=== PATIENT | male | born 1980 | race Caucasian/White ===

== ENCOUNTER 2021-12-07 17:01 | Emergency (ER) | payer MEDICAID, SELFPAY | END 2021-12-07 20:01 | disposition left against medical advice (07) | PROVIDERS: Emergency Provider Emergency Medicine | DX: Z76.0 Encounter for issue of repeat prescription (principal) ==

== ENCOUNTER 2023-01-08 12:20 | Emergency (ER) | payer MEDICAID, SELFPAY ==
--- NOTE | 2023-01-08 12:26 | ED_ITS ---
HPI - General Adult General Chief complaint: Abdominal Pain Stated complaint: abd pain/ constipated Time Seen by Provider: 01/08/23 12:42 Source: patient Mode of arrival: ambulatory Limitations: no limitations History of Present Illness HPI narrative: 42-year-old male came in for evaluation of constipation for 3 days. Patient with long history of constipation he normally he goes every 3 days for bowel movement normal and the last bowel movement was 3 days ago, patient have the urge to go but cannot go feels pressure in the rectum area, patient declined any abdominal pain, no nausea, no vomiting, no fever. Patient declined any prior surgical abdominal history in the past. No dysuria, no frequency urination, hematuria. Related Data Previous Rx's Medication Instructions Recorded bisacodyl 10 mg rectal suppository 10 mg [place] DAILY PRN constipation 01/08/23 (Dulcolax (bisacodyl)) #12 ea Allergies Allergy/AdvReac Type Severity Reaction Status Date / Time No Known Allergies Allergy Unverified 05/14/20 16:38 Review of Systems Review of Systems: All other systems are reviewed and are negative Constitutional: Reports as per HPI and Reports no additional constitutional complaints Eyes: Reports as per HPI and Reports no additional eye complaints Reports system reviewed and no additional complaints, except as documented Cardiovascular: Reports as per HPI and Reports no additional cardiovascular complaints Respiratory: Reports as per HPI and Reports no additional respiratory complaints Gastrointestinal: Reports as per HPI and Reports no additional gastrointestinal complaints Genitourinary: Reports no additional female genitourinary complaints Musculoskeletal: Reports no additional musculoskeletal complaints Skin/Breast: Reports system reviewed and no additional complaints, except as docu Psychiatric: Reports no additional psychiatric complaints Endocrine: Reports no additional endocrine complaints Hematologic/Lymphatic: Reports no additional hematologic/lymphatic complaints Allergic/Immunologic: Reports no additional allergic/immunologic complaints Reports system reviewed and no additional complaints, except as documented and Reports Abnormal speech present Physical Exam ED Vital Signs: Vital Signs - 24 hr 01/08/23 12:27 Temperature 96.4 F L Pulse Rate 84 Respiratory Rate 16 Blood Pressure 124/81 Pulse Oximetry 100 Oxygen Delivery Method Room Air BMI result Body Mass Index 26.5 Vital signs have been reviewed as appeared to be correct. Blood pressure normal. Heart rate normal. Respiration rate normal. Temperature normal. Oxygen saturation normal. Appearance: Alert. Oriented X3. No acute distress. Head: Normal external exam. Normocephalic. Atraumatic. No Umanzor signs noted. No raccoon eyes noted Eyes: PERRLA. EOMI. Conjunctiva and sclera normal. Eyelids normal. ENT: TM's Normal. Pharynx normal. Uvula midline. Moist mucous membranes. No trismus noted. No drooling noted. No muffled voice noted. Neck: Normal inspection. Neck supple. FROM. No adenopathy. Thyroid Normal. No meningeal signs. No neck mass noted. CVS: Normal heart rate and rhythm. Heart sound normal. No murmurs noted. Pulses normal throughout. Respiratory: No respiratory distress. Painless inspiration. Breath sounds normal. No wheezes/rales/rhonchi noted. Chest nontender. No accessory muscle usage noted or decreased air movement noted. Abdomen: Soft and nontender. Bowel sounds normal in all 4 quadrants. No distention noted. No organomegaly noted. No visible injury noted. Rectal exam: Patient declined the exam. Back: No CVA tenderness. Full range of motion noted. Skin: Skin warm and dry. Normal skin color. Normal skin turgor. No rashes/lesions/lacerations noted. Extremities: No lower extremity edema. Extremities exhibit normal range of motion. Extremities nontender. Neuro: Oriented X 3. Cranial nerve exam: II-XII are grossly intact No motor deficit. No sensory deficit. Reflexes normal. Course Course Course Narrative: RME performed by Jodi Aranda PA-C. Patient is a 42 year old assigned male at presenting to the emergency department with constipation. Patient states that he has not had a bowel movement for 3 days and today, he feels like he needs to go but can't. Patient states 3 days is normal for him but this is the first time he has felt like he's needed to but cant'. Labs and imaging ordered. Patient placed back in the waiting room pending room availability and results. Reevaluation(s) Reevaluation #1: Constipation patient with history of constipation, mild leukocytosis secondary to stress reaction but the abdominal exam is benign patient is refusing any radiographic studies and refusing rectal exam requesting to prescribe either enema or suppository and he will administer it himself at home. Patient was advised to have the rectal exam and possibly get radiographic studies and patient declined, will discharge after giving milk of magnesia and prescription for Dulcolax suppository. Time: 13:12 Medical Decision Making Differential Diagnosis Differential Diagnoses: The differential diagnosis associated with the presentation includes (Constipation, bowel obstruction, electrolyte abnormalities, severe anemia.) Lab Data MDM Lab Attestation statement: I reviewed the patient's lab results. 01/08/23 12:40 01/08/23 12:40 Labs: Lab Results 01/08/23 01/08/23 Range/Units 12:40 12:40 WBC 12.1 H (4.8-10.8) X10*3/uL RBC 4.65 (4.60-5.80) X10*6/uL Hgb 13.4 L (14.0-18.0) g/dl Hct 41.2 L (42.0-52.0) % MCV 88.6 (80.0-98.0) fL MCH 28.8 (27.0-33.0) pg MCHC 32.5 (31.0-36.0) g/dl RDW 13.1 (11.0-16.0) % Plt Count 243 (160-400) X10*3/uL MPV 10.0 (9.4-12.4) fL Immature Gran % (Auto) 0.5 H (0.0-0.4) % Neut % (Auto) 79.1 H (45-73) % Lymph % (Auto) 10.2 L (20-40) % [place] % (Auto) 7.4 (2-11) % Eos % (Auto) 2.3 (0-4) % Baso % (Auto) 0.5 (0-2) % Lymph # (Auto) 1.2 (1.2-4.9) X10*3/uL [place] # (Auto) 0.9 (0.1-1.2) X10*3/uL Eos # (Auto) 0.3 (0.0-0.4) X10*3/uL Baso # (Auto) 0.1 (0.0-0.2) X10*3/uL Abs Immat Gran (auto) 0.06 H (0.00-0.03) X10*3/uL Absolute Neuts (auto) 9.6 H (2.0-8.3) x10*3/uL Absolute Nucleated RBC 0.000 (0.0-0.012) X10*3/uL Nucleated RBC % (auto) 0.0 (0.0-0.2) /100WBC Sodium 142 (135-145) mmol/L Potassium 4.5 (3.3-5.1) mmol/L Chloride 108 (96-108) mmol/L Carbon Dioxide 28 (22-29) mmol/L Anion Gap 11 L (12-20) BUN 19 H (9-16) mg/dL Creatinine 0.84 (0.5-1.4) mg/dL Estim Creat Clear Calc 124.5 Estimated GFR > 60 Random Glucose 85 (60-115) mg/dL Calcium 9.4 (8.4-10.2) mg/dL Magnesium 2.0 (1.6-2.6) mg/dL Total Bilirubin 0.3 (0.0-1.0) mg/dL AST 18 (5-37) U/L ALT 17 (0-40) U/L Alkaline Phosphatase 72 (39-117) U/L Total Protein 7.2 (6.5-8.0) g/dL Albumin 4.2 (3.5-5.0) g/dL Discharge Plan Discharge Clinical Impression: Constipation Patient Disposition: Home, Self-Care Instructions: Constipation (ED) Prescriptions: New bisacodyl [Dulcolax (bisacodyl)] 10 mg suppository 10 mg [place] DAILY PRN (Reason: constipation) Qty: 12 0RF Referrals: Physician,Unknown J [Primary Care Provider] -
[2023-01-08 12:27] VITALS: BP 124/81; PULSE 84; RESP 16; TEMP 35.8; O2SAT 100; BMI 26.5
[2023-01-08 12:44] LABS: MANUAL DIFF FLAG NO
[2023-01-08 12:46] LABS: Basophils Absolute Auto 0.1 X10*3/uL (0.0-0.2); Basophils Percent Auto 0.5 % (0-2); Eosinophils Absolute Auto 0.3 X10*3/uL (0.0-0.4); Eosinophils Percent Auto 2.3 % (0-4); Hematocrit 41.2 % (42.0-52.0); Hemoglobin 13.4 g/dl (14.0-18.0); Imm Gran Abs Auto 0.06 X10*3/uL (0.00-0.03); Imm Gran Pct Auto 0.5 % (0.0-0.4); Lymphocytes Absolute Auto 1.2 X10*3/uL (1.2-4.9); Lymphocytes Percent Auto 10.2 % (20-40); Mean Corpuscular HGB Conc 32.5 g/dl (31.0-36.0); Mean Corpuscular Hemoglobin 28.8 pg (27.0-33.0); Mean Corpuscular Volume 88.6 fL (80.0-98.0); Monocytes Absolute Auto 0.9 X10*3/uL (0.1-1.2); Monocytes Percent Auto 7.4 % (2-11); Neutrophils Absolute Auto 9.6 x10*3/uL (2.0-8.3); Neutrophils Percent Auto 79.1 % (45-73); Platelet Count 243 X10*3/uL (160-400); Red Blood Count 4.65 X10*6/uL (4.60-5.80); Red Cell Distribution Width 13.1 % (11.0-16.0); White Blood Count 12.1 X10*3/uL (4.8-10.8)
[2023-01-08 13:02] LABS: Alanine Aminotransferase 17 U/L (0-40); Albumin Level 4.2 g/dL (3.5-5.0); Alkaline Phosphatase 72 U/L (39-117); Anion Gap 11 (12-20); Aspartate Amino Transferase 18 U/L (5-37); Bilirubin Total 0.3 mg/dL (0.0-1.0); Blood Urea Nitrogen 19 mg/dL (9-16); Calcium 9.4 mg/dL (8.4-10.2); Carbon Dioxide 28 mmol/L (22-29); Chloride 108 mmol/L (96-108); Creatinine Clr Calc Pharmacy 124.5; Estimated Glomerular Filt Rate > 60; Glucose Random 85 mg/dL (60-115); Potassium 4.5 mmol/L (3.3-5.1); Sodium 142 mmol/L (135-145); Total Protein 7.2 g/dL (6.5-8.0)
[2023-01-08] MEDS: Milk of Magnesia 30 ML ORAL.SUSP PO (13:06)
== END 2023-01-08 13:32 | disposition home or self-care (01) ==
PROVIDERS: Physician Assistant Medical; Emergency Provider Emergency Medicine
DX: K59.00 Constipation, unspecified (principal); Z79.899 Other long term (current) drug therapy
CPT/HCPCS: 36415; 80053; 83735; 85025; 99283

== ENCOUNTER 2023-07-20 11:45 | Emergency (ER) | payer MEDICAID, SELFPAY ==
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
[2023-07-20 11:49] VITALS: BP 145/86; PULSE 92; RESP 18; TEMP 36.8; O2SAT 98; BMI 28.1
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
[2023-07-20 12:51] VITALS: BP 144/76; PULSE 90; RESP 16; TEMP 36.6; O2SAT 98
--- NOTE | 2023-07-20 14:23 | PC.NURSE ---
PT WAS EVALUATED AND DISCHARGED BY PROVIDER
== END 2023-07-20 14:28 | disposition home or self-care (01) ==
PROVIDERS: Emergency Provider Emergency Medicine
DX: Z04.1 Encounter for examination and observation following transport accident (principal); R51.9 Headache, unspecified
CPT/HCPCS: 70450; 72125; 73502; 99283; 99284

== ENCOUNTER 2023-08-14 12:49 | Emergency (ER) | payer MEDICAID, SELFPAY ==
[2023-08-14 13:46] VITALS: BP 98/71; PULSE 76; RESP 20; TEMP 36.6; O2SAT 99; BMI 30.1
--- NOTE | 2023-08-14 13:46 | ED_ITS ---
HPI - General Adult General Chief complaint: General Medical Stated complaint: need sobixon medication Time Seen by Provider: 08/14/23 14:10 Source: patient and RN notes reviewed Mode of arrival: ambulatory Limitations: no limitations History of Present Illness HPI narrative: this is a 43-year-old male, with a history of opioid use disorder on Suboxone 8mg, presenting to the emergency department to be dosed for Suboxone. Patient states that he is currently being seen at [facility] but reports that he has had issues feeling his prescription due to insurance problems. He has intentions of following up with his outpatient clinic tomorrow. He has not had Suboxone dose in 3 days. He has not used any opioids or substances. he is otherwise feeling okay, denies fevers, chills, chest pain, shortness breath, abdominal pain, nausea, vomiting or diarrhea. No other complaints or concerns at this time. MD complaint: Suboxone dosing Relieving factors: none Exacerbating factors: none Associated symptoms: denies other symptoms Treatments prior to arrival: none Related Data Previous Rx's Medication Instructions Recorded bisacodyl 10 mg rectal suppository 10 mg [place] DAILY PRN constipation 01/08/23 (Dulcolax (bisacodyl)) #12 ea naproxen 500 mg tablet 500 mg PO BID PRN pain 7 days #14 07/20/23 tabs Allergies Allergy/AdvReac Type Severity Reaction Status Date / Time No Known Allergies Allergy Verified 07/20/23 11:54 Review of Systems Review of Systems: Yes all other systems are reviewed and are negative PMFSH Past Medical History Attestation statement: The following information was validated with the patient. Physical Exam ED Vital Signs: Vital Signs - 24 hr 08/14/23 13:46 Temperature 97.8 F Pulse Rate 76 Respiratory Rate 20 Blood Pressure 98/71 Pulse Oximetry 99 Oxygen Delivery Method Room Air BMI result Body Mass Index 30.1 Const Other: General: Awake, alert, and oriented X3. No acute distress. HEENT: Normal inspection CVS: Normal heart rate and rhythm. Pulses normal. Respiratory: No respiratory distress Skin: Warm, dry, no rashes noted to exposed skin. Normal skin color. Normal skin turgor. Extremities: normal to inspection Neuro: Oriented X 3. No motor deficit. No sensory deficit. Course Course Course Narrative: This is an RME: Additional HPI, ROS, PE not included below will be deferred to primary provider. This is a 43-year-old male presenting to the emergency department due to wanting Suboxone dosing. he has had issues with feeling his Suboxone given difficulty with insurance. He has been without Suboxone for 3 days. Medications Administered Discontinued Medications Generic Name Dose Route Start Last Admin Trade Name Freq PRN Reason Stop Dose Admin Buprenorphine/Naloxone 1 film 08/14/23 14:07 08/14/23 14:13 Buprenorphine/Naloxone 8/2 Mg Film SUBLINGUAL 08/14/23 14:08 1 film ONCE ONE Administration Medical Decision Making Medical Decision Making MDM Narrative: This is a 43-year-old male presenting to the emergency department for Suboxone dosing. He has been off Suboxone for a while but has not had his Suboxone dose in 3 days as he has had insurance issues. He is feeling well. Vital signs within normal limits. Patient dosed with Suboxone dosing 8 mg. confirmed with my supervising physician, Dr. Baumann at this is okay to medicate him in the department. Patient given Suboxone dosing, advised to follow-up outpatient. Patient understands agrees with plan. Patient stable for discharge Differential Diagnosis Differential Diagnoses: The differential diagnosis associated with the presentation includes opioid use disorder, medication dosing, Opioid withdrawal Discharge Plan Discharge Clinical Impression: Opioid use disorder in remission Patient Disposition: Home, Self-Care Instructions: Opioid Use Disorder (ED) Additional Instructions: you presented to the emergency department for Suboxone dosing. We are able to give you a Suboxone 8 mg film today. Please follow-up with your outpatient clinic for further Suboxone medication. If any new or worsening symptoms occur including but not limited to chest pain, shortness breath, please return for re-evaluation. Prescriptions: No Action bisacodyl [Dulcolax (bisacodyl)] 10 mg suppository 10 mg [place] DAILY PRN (Reason: constipation) Qty: 12 0RF naproxen 500 mg tablet 500 mg PO BID PRN (Reason: pain) 7 Days Qty: 14 0RF
[2023-08-14] MEDS: Buprenorphine/Naloxone 8/2 mg FILM 1 FILM SUBLINGUAL (14:13)
== END 2023-08-14 14:23 | disposition home or self-care (01) ==
PROVIDERS: Emergency Provider Emergency Medicine
DX: F11.10 Opioid abuse, uncomplicated (principal); Z71.51 Drug abuse counseling and surveillance of drug abuser
CPT/HCPCS: 99282; 99283

== ENCOUNTER 2025-08-07 15:42 | Emergency (ER) | payer MEDICAID, SELFPAY ==
[2025-08-07 18:07] VITALS: BP 163/105; PULSE 60; RESP 18; TEMP 36.3; O2SAT 100; BMI 30.3
--- NOTE | 2025-08-07 18:11 | ED_ITS ---
HPI - Skin/Abscess/Foreign Bdy General Chief complaint: General Medical Stated complaint: General Medical Time Seen by Provider: 08/07/25 16:54 Source: patient Limitations: no limitations History of Present Illness ED Provider: Steph Holbrook PA-C HPI narrative: 45-year-old male presents with concern for parasitic infestation. Patient states he just moved into a new apartment, he states he has an infestation of fleas in bed bugs. Patient is stating he has bites over his hands, arms, torso, back. He states that his landlord is aware and an canvas goods maker we will be coming soon. Related Data Previous Rx's ?Medication ?Instructions ?Recorded bisacodyl 10 mg rectal suppository 10 mg [place] DAILY PRN constipation 01/08/23 (Dulcolax (bisacodyl)) #12 ea naproxen 500 mg tablet 500 mg PO BID PRN pain 7 day s #14 07/20/23 tabs hydroxyzine HCl 50 mg tablet 50 mg PO TID PRN anxiety #15 tabs 08/08/25 permethrin 5 % topical cream 1 appl topical Q14D 2 dos es #60 08/08/25 grams prednisone 20 mg tablet 40 mg (2 x 20 mg) PO DAILY # 10 tabs 08/09/25 Allergies Allergy/AdvReac Type Severity Reaction Status Date / Time No Known Allergies Allergy Verified 08/09/25 01:31 Review of Systems Review of Systems: Yes all other systems are reviewed and are negative Constitutional: Constitutional: Denies fatigue and Denies fever(s) Integumentary/Breasts: Skin/Breast: Reports dry skin, Reports pruritus and Reports sores Endocrine: Endocrine: Denies fatigue PMFSH Past Medical History Attestation statement: The following information was validated with the patient. Social History Social History Advance Directives: No Advance Directives Information Provided: Yes Physical Exam Vital Signs: Vital Signs: Last Vital Signs Temp 97.3 F 08/08/25 00:11 Pulse 60 08/08/25 00:11 Resp 18 08/08/25 00:11 BP 163/105 H 08/08/25 00:11 Pulse Ox 100 08/08/25 00:11 O2 Del Method Room Air 08/08/25 00:11 BMI result Body Mass Index 30.3 Const: Other: anxious, unable to sit still Orientation/consciousness: patient oriented x3 Resp: Effort & Inspection: normal respiratory effort Cardio: Other: normal peripheral perfusion Skin: Other: excoriations that are dry are noted over bilateral dorsum of the hands, overall the skin is dry, the patient is insistent that he has a rash over his chest upper back regions of the torso, there is no rash present Neuro: General: patient oriented x3, gait normal, no focal motor deficits and CN's II-XI intact bilaterally Psych: Other: patient is insistent that he may have bugs on his person, he is taken off his jacket he is shaking it over the bed to try to show that he has bugs, there are no insects, Course Course Course Narrative: This is an RME: Additional HPI, ROS, PE not included below will be deferred to primary provider. RME assessment and note performed by: Zoe Rosas PA-C This is a [id number]-male who presents to the ER with complaints of concerns for bugs all over his body. Pt with rash, itchy throughout. Believes bugs are crawling out of his teeth. Medical Decision Making Medical Decision Making MDM Narrative: 45-year-old male presents with concern for parasitic infestation. Patient states he just moved into a new apartment, he states he has an infestation of fleas in bed bugs. Patient is stating he has bites over his hands, arms, torso, back. He states that his landlord is aware and an canvas goods maker we will be coming soon. no known chronic issues History: Per patient I have considered the following differential diagnoses: Delusional parasitosis, scabies, bedbugs, flea infestation, allergic reaction, plan: The patient is insistent that he has a flea infestation. He further explains that his landlord is aware, that there will be an canvas goods maker come into the home. The patient is already cleaned to his home, with the insecticide bombs. I am not appreciating bug bites that are consistent with bedbugs. He does have excoriations over the dorsum of both hands, however there are not discrete linear track jaime, they are not between the web spaces he does not have them anywhere else over the body to suggest scabies. He does seem a bit manic, we have no history on the patient. I will send him with permethrin. no indication for labs. Differential Diagnosis Differential Diagnoses: The differential diagnosis associated with the presentation includes See MDM Admission/Observation Consideration of admission/observation: Escalation of care including admission/observation considered not applicable Discharge Plan Discharge Clinical Impression: Scabies Patient Disposition: Home, Self-Care Instructions: Scabies (ED) Additional Instructions: You are being treated for suspect scabies infestation. Use the topical lotion as directed. Use the hydroxyzine as needed, this can help with anxiety associated with the this infestation. Be sure to follow up with your primary care provider for a reassessment after your treatment is complete. Prescriptions: New hydroxyzine HCl 50 mg tablet 50 mg PO TID PRN (Reason: anxiety) Qty: 15 0RF permethrin 5 % cream 1 appl topical Q14D Qty: 60 1RF Rx Instructions: apply second treatment 14 days after first treatment if live lice remain No Action bisacodyl [Dulcolax (bisacodyl)] 10 mg suppository 10 mg SD DAILY PRN (Reason: constipation) Qty: 12 0RF naproxen 500 mg tablet 500 mg PO BID PRN (Reason: pain) 7 Days Qty: 14 0RF prednisone 20 mg tablet 40 mg PO DAILY Qty: 10 0RF Interventions: ED Discharge Assessment Last Done: 08/08/25 00:11 Discharge Date/Time: 08/08/25 00:11 Print Language: Syrian
[2025-08-08 00:11] VITALS: BP 163/105; PULSE 60; RESP 18; TEMP 36.3; O2SAT 100
== END 2025-08-08 00:11 | disposition home or self-care (01) ==
PROVIDERS: Emergency Provider Emergency Medicine
DX: B86 Scabies (principal)
CPT/HCPCS: 99282; 99283

== ENCOUNTER 2025-08-09 00:58 | Emergency (ER) | payer MEDICAID, SELFPAY ==
[2025-08-09 01:29] VITALS: BP 144/68; PULSE 68; RESP 20; TEMP 36.7; O2SAT 99; BMI 30.1
--- NOTE | 2025-08-09 01:46 | ED_ITS ---
HPI - Skin/Abscess/Foreign Bdy General Chief complaint: Skin/Abscess/Foreign Body Stated complaint: bed bugs? Time Seen by Provider: 08/09/25 01:24 History of Present Illness HPI narrative: Patient is a 45-year-old male he believes there are bugs crawling inside his house. Patient complaining of itchiness in the arms. In the penile area. In the bilateral hands bilateral arms bilateral legs. Patient's was seen yesterday was given Elimite patient's claims he did apply it all over his body and left it on overnight. The redness persisted. The redness is worse over the arm over the area that he could scratch. Not as bad in his back. Patient denies any nausea vomiting any fever chills. His apartment is being tested for it bedbugs. Patient currently is staying at a hotel. Was given antihistamine yesterday. Related Data Previous Rx's ?Medication ?Instructions ?Recorded bisacodyl 10 mg rectal suppository 10 mg [place] DAILY PRN constipation 01/08/23 (Dulcolax (bisacodyl)) #12 ea naproxen 500 mg tablet 500 mg PO BID PRN pain 7 day s #14 07/20/23 tabs hydroxyzine HCl 50 mg tablet 50 mg PO TID PRN anxiety #15 tabs 08/08/25 permethrin 5 % topical cream 1 appl topical Q14D 2 dos es #60 08/08/25 grams prednisone 20 mg tablet 40 mg (2 x 20 mg) PO DAILY # 10 tabs 08/09/25 Allergies Allergy/AdvReac Type Severity Reaction Status Date / Time No Known Allergies Allergy Verified 08/09/25 01:31 Review of Systems Review of Systems: Positive itch PMFSH Past Medical History Attestation statement: The following information was validated with the patient. Social History Social History Advance Directives: No Advance Directives Information Provided: Yes Physical Exam Exam: Exam: Appearance: Alert. Oriented X3. No acute distress. Eyes: Pupils equal, round and reactive to light. ENT: Pharynx normal. Neck: Normal inspection. Neck supple. No lymph nodes noted. No crepitus CVS: Normal heart rate and rhythm. Pulses normal. Normal S1 and S2 Respiratory: No respiratory distress. Breath sounds normal. No Wheezing. No rales Abdomen: Soft and nontender. No rigidity. No distention. good BS x4 Skin: Extremely dry skin noted over bilateral arms. Bilateral leg. Slightly red. Extremely pruritic. Signs of scratching. In the hands I could see areas of redness. But there is no gross lesions in the web spaces. There is redness itchiness over the face over the neck. Less so over the back. Areas that he can not scratch. Extremities: No lower extremity edema. Neurovascular intact to all extremities. No Lacerations. No Rash Neuro: Oriented X 3. No motor deficit. No sensory deficit. Moving all extermities. No slurred speech Vital Signs: Vital Signs: Last Vital Signs Temp 98.0 F 08/09/25 01:29 Pulse 68 08/09/25 01:29 Resp 20 08/09/25 01:29 BP 144/68 H 08/09/25 01:29 Pulse Ox 99 08/09/25 01:29 O2 Del Method Room Air 08/09/25 01:29 BMI result Body Mass Index 30.1 Medical Decision Making Medical Decision Making MDM Narrative: Positive itchiness to the face to the neck to the arms to the legs. Extremely dry skin. Areas of abrasion. I did not appreciate any barring. Nevertheless patient already treated with Elimite. Has not additional cream at home to use in 1 week. He is still itching. It got especially bad after he took a hot shower. His skin appears very dry to me very scaly insert areas. Blanching. There is no gross signs of infection. Elected to give patient steroid for the diffuse rash. There is no mucosal membrane involvement. Currently in stable condition. Differential Diagnosis Differential Diagnoses: The differential diagnosis associated with the presentation includes Scabies, eczema, cellulitis, bed bugs Admission/Observation Consideration of admission/observation: Escalation of care including admission/observation considered Social Determinants Patient?s care significantly limited by Social Determinants of Health including: Inadequate housing and Problems related to primary support group Discharge Plan Discharge Clinical Impression: Eczema Patient Disposition: Home, Self-Care Instructions: Dermatitis (ED) Prescriptions: New prednisone 20 mg tablet 40 mg PO DAILY Qty: 10 0RF No Action bisacodyl [Dulcolax (bisacodyl)] 10 mg suppository 10 mg [place] DAILY PRN (Reason: constipation) Qty: 12 0RF naproxen 500 mg tablet 500 mg PO BID PRN (Reason: pain) 7 Days Qty: 14 0RF hydroxyzine HCl 50 mg tablet 50 mg PO TID PRN (Reason: anxiety) Qty: 15 0RF permethrin 5 % cream 1 appl topical Q14D Qty: 60 1RF Rx Instructions: apply second treatment 14 days after first treatment if live lice remain Print Language: Kyrgyz
[2025-08-09 02:05] VITALS: BP 144/68; PULSE 68; RESP 20; TEMP 36.7; O2SAT 99
== END 2025-08-09 02:05 | disposition home or self-care (01) ==
PROVIDERS: Emergency Provider Emergency Medicine Emergency Medical Services
DX: L30.9 Dermatitis, unspecified (principal)
CPT/HCPCS: 99282; 99283